=== PATIENT | female | born 1975 | race Caucasian/White ===

== ENCOUNTER 2016-07-12 01:30 | Outpatient (CLI) | payer BC | END 2016-07-12 01:31 | disposition critical access hospital (66) | DX: R55 Syncope and collapse (principal) | CPT/HCPCS: A0425; A0427 ==

== ENCOUNTER 2016-07-12 02:02 | Emergency (ER) | payer BC ==
[2016-07-12] MEDS ORDERED: SODIUM CHLORIDE 0.9% 1,000 ML IV ONE (02:10)
== END 2016-07-12 03:18 | disposition home or self-care (01) ==
DX: F10.121 Alcohol abuse with intoxication delirium (principal)